=== PATIENT | female | born 1945 | race Caucasian/White ===

== ENCOUNTER 2023-08-27 05:59 | Day surgery (SDC) | payer MEDICARE, MEDICAID, SELFPAY ==
[2023-08-22 08:16] VITALS: BMI 17.8
[2023-08-22 08:22] VITALS: BMI 17.8
[2023-08-27 06:25] VITALS: BP 159/74; PULSE 96; RESP 16; TEMP 36.4; O2SAT 96
[2023-08-27 06:41] VITALS: BMI 18.1
[2023-08-27] MEDS: Tetracaine HCl/PF 0.5% Oph Sol 4 ML DROPS 1 DROP EYE-RIGHT (06:42)
[2023-08-27] MEDS: Cyclopentolate 1 % Ophth Sol 2 ML DRPBTL 1 DROP EYE-RIGHT ×3 (06:44→07:00)
[2023-08-27] MEDS: Tropicamide 1 % Ophth Sol 3 ML BTL 1 DROP EYE-RIGHT ×3 (06:46→07:02)
[2023-08-27] MEDS: Ketorolac Tromethamine 0.5% Op 5 ML DROPS 1 DROP EYE-RIGHT ×3 (06:48→07:04)
[2023-08-27] MEDS: Phenylephrine HCL 2.5% Oph SoL 2 ML BOTTLE 1 DROP EYE-RIGHT ×3 (06:50→07:06)
--- NOTE | 2023-08-27 07:00 | HO.ANESPROP2 ---
HPI - Anesthesia Eval Consult details Narrative: Right eye cataract IOL [facility] Past Medical History Medical History Anxiety Depression HTN (hypertension) Generalized anxiety disorder Arthritis Family History Family history of problems with anesthesia: No Surgical History Surgical History No pertinent past surgical history History of Problems with Anesthesia: No Social History Social History Are you a primary healthcare management to a significant other at home: No Do you presently have visiting nurse or other home services: Yes (nurse) Patient Tobacco Use Status: Never used Tobacco Use of substances other than those prescribed or required for medical reasons: No Advance Directives: No Advance Directives Information Provided: Yes Nutrition Risks: Surgical patient >75years Meds Allergies Allergy/AdvReac Type Severity Reaction Status Date / Time No Known Allergies Allergy Verified 03/22/23 07:52 Active Medications: Current Medications Povidone Iodine (Povidone Iodine 5 % Ophth Soln 30 Ml Bottle) 1 appl EYE-RIGHT PREOP PRN PRN Reason: Pre-Op Surgical Implant Prophy Home Medications Medication Instructions Recorded Confirmed Last Taken Type amlodipine 10 mg-benazepril 40 mg 1 cap PO DAILY 03/22/23 08/27/23 08/26/23 History capsule hydrochlorothiazide 12.5 mg tablet 12.5 mg PO DAILY 03/22/23 08/27/23 08/26/23 History Exam Height,Weight and Vital Signs: Height 4 ft 10.27 in Weight 39.689 kg Last Vital Signs Temp 97.6 F 08/27/23 06:25 Pulse 96 08/27/23 06:25 Resp 16 08/27/23 06:25 BP 159/74 H 08/27/23 06:25 Pulse Ox 96 08/27/23 06:25 O2 Del Method Room Air 08/27/23 06:25 Airway Mallampati Class: II TM Dist: >3cm Neck ROM: Full Loose/Missing/Broken Teeth: Yes (many missing globally, poor dentition) Heart: [id number] Lungs: cta b/l Assessment and Plan Assessment Anesthesia Assessment: Anesthesia Plan Discussed and Chart Reviewed Final Anesthetic Review Family History of Problems with Anesthesia: No History of Problems with Anesthesia: No NPO: Yes ASA Class: III Final Preanesthetic Review: No Changes in Pt Med Stat, Meds/Allgs Chart Reviewed, Consent Obtained/Reviewed and Anes Risks/Benef Reviewed Patient Risk: Intermediate Procedure Risk: Low Assessment/Block/Sedation in SS: Assess/Block/Sedation-SS Anesthetic Plan Anesthetic Plan: MAC: Disposition: Standard PACU
--- NOTE | 2023-08-27 07:59 | MHC.SHP ---
Pre-Procedural Eval Section A - 24 Hr Update-Section A only Date of Service: 08/27/23 The patient is an INPATIENT: No Changes since office visit: No Cold of Flu in the past 2 weeks, No New Medical Problems, No Changes in Medication and No Patient answered all questions The patient has been examined within 24 hours of the surgical procedure. The History & Physical has been completed within 30 days and I have reviewed it.: Yes Section B - Complete if H&P > 30 days Chief Complaint: Age-related nuclear cataract, right eye Allergies: Allergies Allergy/AdvReac Type Severity Reaction Status Date / Time No Known Allergies Allergy Verified 03/22/23 07:52 Plan Diagnosis/Plan: Unchanged I have reviewed the history and physical and performed a pertinent physical examination on my patient. No changes have occurred unless specified. Time Spent With Patient Time: Total time managing care of this patient today ____ minutes.
--- NOTE | 2023-08-27 08:00 | HO.PNOPHT ---
Ophthalmology Procedure Procedure Date of Service: 08/27/23 Ophthalmology Viscoelastic: Healon Duet Dual Pack Pro Ophthalmology Lenses: TECNIS [id number] (21.5) Procedure Notes: PREOPERATIVE DIAGNOSIS: Decreased visual acuity right eye secondary to cataract POSTOPERATIVE DIAGNOSIS: Same PROCEDURE: Right cataract extraction with intraocular lens insertion SURGEON: Semaj Woodard M.D. ANESTHESIA: Topical/MAC ESTIMATED BLOOD LOSS: None COMPLICATIONS: None After obtaining informed consent, the patient was brought to the operating room suite and placed in the supine position. After adequate sedation per anesthesia, topical drops of Tetracaine were given to the right eye. The eye was then prepped and draped in the usual sterile fashion. The operating room microscope was then positioned over the operative eye and a lid speculum placed. A paracentesis was created. Viscoelastic was then instilled into the anterior chamber. A three plane incision was then created temporally, utilizing a 2.85 mm keratome. Capsulotomy forceps were then utilized to create a circular tear capsulotomy. Hydrodissection and hydrodelineation were carried out until adequate mobilization of the nucleus occurred. Phacoemulsification was then utilized to remove the dense central nucleus followed by removal of the cortical material utilizing the automated aspiration irrigation unit. Viscoelastic was instilled into the posterior capsular bag followed by placement of a posterior chamber intraocular lens without difficulty. The residual Viscoelastic was then removed utilizing the automated IA machine. The wound was checked and found to be watertight. The patient tolerated the procedure well and the lid speculum was removed. Intracameral injection of Vigamox 0.1 mL followed by a subtenon injection of Kenalog-40 0.2 mL were administered. The patient will be seen in the a.m.
[2023-08-27 08:32] VITALS: BP 131/62; PULSE 85; RESP 16; TEMP 36.8; O2SAT 96
== END 2023-08-27 08:40 | disposition home or self-care (01) ==
PROVIDERS: PCP Registered Nurse; Visit Provider Ophthalmology
PROC: (CPT 66985; principal; 2023-08-27 08:20)
DX: H25.11 Age-related nuclear cataract, right eye (principal); H54.7 Unspecified visual loss; I10 Essential (primary) hypertension; Z79.899 Other long term (current) drug therapy
CPT/HCPCS: 66984; J2250; J3010; J3301; V2632

== ENCOUNTER 2023-09-10 08:26 | Day surgery (SDC) | payer MEDICARE, MEDICAID, SELFPAY ==
[2023-08-22 08:25] VITALS: BMI 17.8
--- NOTE | 2023-09-07 08:48 | HO.ANESPROP2 ---
Documented by User: Taylor Liriano NP 09/07/23 08:49 HPI - Anesthesia Eval Consult details Narrative: 78yo F for Left Cataract Extraction IOL Insertion PCP cleared Right eye 08/27/23: Fent 50, Midaz 1 [facility] Past Medical History Medical History Anxiety Depression HTN (hypertension) Generalized anxiety disorder Arthritis Family History Family history of problems with anesthesia: No Surgical History Surgical History Hx of right cataract extraction No pertinent past surgical history History of Problems with Anesthesia: No Social History Social History Are you a primary day care teacher to a significant other at home: No Do you presently have visiting nurse or other home services: Yes (nurse) Patient Tobacco Use Status: Never used Tobacco Use of substances other than those prescribed or required for medical reasons: No Advance Directives: No Advance Directives Information Provided: Yes Nutrition Risks: Surgical patient >75years Meds Allergies Allergy/AdvReac Type Severity Reaction Status Date / Time No Known Allergies Allergy Verified 09/10/23 10:02 Home Medications Medication Instructions Recorded Confirmed Last Taken Type amlodipine 10 mg-benazepril 40 mg 1 cap PO DAILY 03/22/23 08/27/23 08/26/23 History capsule hydrochlorothiazide 12.5 mg tablet 12.5 mg PO DAILY 03/22/23 08/27/23 08/26/23 History Exam Height,Weight and Vital Signs: Height 4 ft 10.27 in Weight 39 kg Assessment and Plan Assessment Anesthesia Assessment: Chart Reviewed Final Anesthetic Review Family History of Problems with Anesthesia: No History of Problems with Anesthesia: No Documented by User: Marie Lawson MD 09/10/23 10:27 [facility] Past Medical History Medical History Anxiety Depression HTN (hypertension) Generalized anxiety disorder Arthritis Surgical History Surgical History Hx of right cataract extraction No pertinent past surgical history Social History Social History Are you a primary day care teacher to a significant other at home: No Do you presently have visiting nurse or other home services: Yes (nurse) Patient Tobacco Use Status: Never used Tobacco Use of substances other than those prescribed or required for medical reasons: No Advance Directives: No Advance Directives Information Provided: Yes Nutrition Risks: Surgical patient >75years Meds Allergies Allergy/AdvReac Type Severity Reaction Status Date / Time No Known Allergies Allergy Verified 09/10/23 10:02 Home Medications Medication Instructions Recorded Confirmed Last Taken Type amlodipine 10 mg-benazepril 40 mg 1 cap PO DAILY 03/22/23 08/27/23 08/26/23 History capsule hydrochlorothiazide 12.5 mg tablet 12.5 mg PO DAILY 03/22/23 08/27/23 08/26/23 History Exam Airway Mallampati Class: II TM Dist: >3cm Neck ROM: Full Loose/Missing/Broken Teeth: No Heart: RRR Lungs: CTA Assessment and Plan Assessment Anesthesia Assessment: Anesthesia Plan Discussed Final Anesthetic Review NPO: Yes ASA Class: II Final Preanesthetic Review: Meds/Allgs Chart Reviewed, Consent Obtained/Reviewed and Anes Risks/Benef Reviewed Patient Risk: Low Procedure Risk: Low Anesthetic Plan Anesthetic Plan: MAC: Disposition: Standard PACU
[2023-09-10 10:02] VITALS: BP 160/65; PULSE 86; RESP 16; TEMP 37; O2SAT 99
[2023-09-10] MEDS: Tetracaine HCl/PF 0.5% Oph Sol 4 ML DROPS 1 DROP EYE-LEFT (10:05)
[2023-09-10] MEDS: Lactated Ringers 500 ML 50 ML IV (10:06)
[2023-09-10] MEDS: Cyclopentolate 1 % Ophth Sol 2 ML DRPBTL 1 DROP EYE-LEFT ×3 (10:06→10:16)
[2023-09-10] MEDS: Tropicamide 1 % Ophth Sol 3 ML BTL 1 DROP EYE-LEFT ×3 (10:07→10:17)
[2023-09-10] MEDS: Ketorolac Tromethamine 0.5% Op 5 ML DROPS 1 DROP EYE-LEFT ×3 (10:08→10:19)
[2023-09-10] MEDS: Phenylephrine HCL 2.5% Oph SoL 2 ML BOTTLE 1 DROP EYE-LEFT ×3 (10:09→10:25)
--- NOTE | 2023-09-10 12:18 | MHC.SHP ---
Pre-Procedural Eval Section A - 24 Hr Update-Section A only Date of Service: 09/10/23 The patient is an INPATIENT: No Changes since office visit: No Cold of Flu in the past 2 weeks, No New Medical Problems, No Changes in Medication and No Patient answered all questions The patient has been examined within 24 hours of the surgical procedure. The History & Physical has been completed within 30 days and I have reviewed it.: Yes Section B - Complete if H&P > 30 days Chief Complaint: Age-related nuclear cataract, left eye Allergies: Allergies Allergy/AdvReac Type Severity Reaction Status Date / Time No Known Allergies Allergy Verified 09/10/23 10:02 Plan Diagnosis/Plan: Unchanged I have reviewed the history and physical and performed a pertinent physical examination on my patient. No changes have occurred unless specified. Time Spent With Patient Time: Total time managing care of this patient today ____ minutes.
--- NOTE | 2023-09-10 12:18 | HO.PNOPHT ---
Ophthalmology Procedure Procedure Date of Service: 09/10/23 Ophthalmology Viscoelastic: Healnicholas Duet Dual Pack Pro Ophthalmology Lenses: TECELISSA [id number] (21) Procedure Notes: PREOPERATIVE DIAGNOSIS: Decreased visual acuity left eye secondary to cataract POSTOPERATIVE DIAGNOSIS: Same PROCEDURE: Left cataract extraction with intraocular lens insertion SURGEON: Semaj Woodard M.D. ANESTHESIA: Topical/MAC ESTIMATED BLOOD LOSS: None COMPLICATIONS: None After obtaining informed consent, the patient was brought to the operation room suite and placed in the supine position. After adequate sedation per anesthesia, topical drops of Tetracaine were given to the left eye. The eye was then prepped and draped in the usual sterile fashion. The operating room microscope was then positioned over the operative eye and a lid speculum placed. A paracentesis was created. Viscoelastic was then instilled into the anterior chamber. A three plane incision was then created temporally, utilizing a 2.85 mm keratome. Capsulotomy forceps were then utilized to create a circular tear capsulotomy. Hydrodissection and hydrodelineation were carried out until adequate mobilization of the nucleus occurred. Phacoemulsification was then utilized to remove the dense central nucleus followed by removal of the cortical material utilizing the automated aspiration irrigation unit. Viscoat elastic was instilled into the posterior capsular bag followed by placement of a posterior chamber intraocular lens without difficulty. The residual Viscoat elastic was then removed utilizing the automated IA machine. The wound was check and found to be watertight. The patient tolerated the procedure well and the lid speculum was removed. Intracameral injection of Vigamox 0.1 mL followed by a subtenon injection of Kenalog-40 0.2 mL were administered. The patient will be seen in the a.m.
[2023-09-10 12:48] VITALS: BP 129/61; PULSE 94; RESP 16; TEMP 36.7; O2SAT 96
== END 2023-09-10 13:15 | disposition home or self-care (01) ==
PROVIDERS: PCP Registered Nurse; Visit Provider Ophthalmology
PROC: (CPT 66985; principal; 2023-09-10 10:50)
DX: H25.12 Age-related nuclear cataract, left eye (principal); H54.7 Unspecified visual loss; H40.011 Open angle with borderline findings, low risk, right eye; I10 Essential (primary) hypertension; Z79.899 Other long term (current) drug therapy
CPT/HCPCS: 66984; J2250; J3010; J3301; V2632